=== PATIENT | female | born 1985 | race Hispanic/Latino ===

== ENCOUNTER 2021-11-07 15:09 | Emergency (ER) | payer OTHER ==
[~2021-11-07] VITALS: Ht 152.4 cm; Wt 72.6 kg
[2021-11-07] MEDS ORDERED: CYCLOBENZAPRINE5 MG PO (16:40)
[2021-11-07] MEDS ORDERED: NAPROSYN500 MG PO (16:40)
[2021-11-07] MEDS ORDERED: PREDNISONE20 MG PO (16:40)
== END 2021-11-07 16:46 | disposition home or self-care (01) ==
LOC: FSED 15:14
DX: M54.12 Radiculopathy, cervical region (principal); M79.621 Pain in right upper arm
CPT/HCPCS: 72040; 99283

== ENCOUNTER 2022-01-13 15:43 | Emergency (ER) | payer SELFPAY ==
[~2022-01-13] VITALS: Ht 152.4 cm; Wt 72.6 kg
[~2022-01-13 15:43] MED LIST: CYCLOBENZAPRINE5 MG PO; NAPROSYN500 MG PO; PREDNISONE20 MG PO
[2022-01-13 16:16] LABS: BASOPHILS % 0.6 % (0.0-1.0); EOSINOPHILS # (AUTO) 0.1 (0.0-0.4); EOSINOPHILS % 0.9 % (0.0-6.0); HEMATOCRIT 35.1 % (34.2-44.1); HEMOGLOBIN 11.9 g/dL (12.0-16.0); LYMPHOCYTES # (AUTO) 1.5 (1.0-3.2); LYMPHOCYTES % 21.6 % (18.0-39.1); MEAN CORPUSCULAR HEMOGLOBIN 29.5 pg (28-32); MEAN CORPUSCULAR HGB CONC 33.9 g/dL (31-35); MEAN CORPUSCULAR VOLUME 86.9 fL (81-99); MONOCYTES # (AUTO) 0.4 (0.2-0.8); MONOCYTES % 5.9 % (4.4-11.3); NEUTROPHILS # (AUTO) 4.9 (2.1-6.9); NEUTROPHILS % 70.7 % (38.7-80.0); PLATELET COUNT 279 x10e3/uL (140-360); RED BLOOD COUNT 4.04 x10e6/uL (3.6-5.1); RED CELL DISTRIBUTION WIDTH 13.1 % (11.7-14.4)
[2022-01-13 16:59] LABS: THYROID STIMULATING HORMONE 0.874 uIU/mL (0.350-4.940)
[2022-01-13] MEDS ORDERED: IBUPROFEN600 MG PO (17:47)
== END 2022-01-13 18:09 | disposition home or self-care (01) ==
LOC: ER 16:10
DX: N93.8 Other specified abnormal uterine and vaginal bleeding (principal)
CPT/HCPCS: 36415; 76830; 76856; 84436; 84443; 84479; 84702; 85025; 99283

== ENCOUNTER 2022-02-09 09:46 | Emergency (ER) | payer SELFPAY ==
[~2022-02-09] VITALS: Ht 152.4 cm; Wt 72.6 kg
[~2022-02-09 09:46] MED LIST changes: +IBUPROFEN600 MG PO
[2022-02-09] MEDS ORDERED: ONDANSETRON ODT4 MG PO (10:38)
[2022-02-09] MEDS ORDERED: DICYCLOMINE HCL20 MG PO (10:38)
== END 2022-02-09 10:42 | disposition home or self-care (01) ==
LOC: ER 10:01
DX: R10.33 Periumbilical pain (principal); K52.9 Noninfective gastroenteritis and colitis, unspecified; R11.2 Nausea with vomiting, unspecified
CPT/HCPCS: 99282